=== PATIENT | female | born 1955 | race Caucasian/White ===

== ENCOUNTER 2017-02-07 14:48 | Inpatient (IN) | payer BC ==
--- NOTE | ~2017-02-07 | DS ---
Unit #: [id number] #: [id number] Patient: ABHAY BAILON [id number] [address] [place], [place] [address] [id number] I MR#: [id number] NAME: ABHAY BAILON ROOM: 46 Age: 61 Sex: F Admission Date: 02/07/2017 : 1955 Discharge Date: 02/09/2017 Attending Physician: Nicholas Coker M.D. Primary Care Physician: Monie Dove M.D. DISCHARGE SUMMARY DISCHARGE DIAGNOSES 1. Acute exacerbation of chronic obstructive pulmonary disease. 2. Medical noncompliance with inhaled medications. 3. Chronic respiratory failure with p.r.n. use of oxygen during the day and at night despite order for 24 hours a day. 4. Hypertension. 5. Chronic pain. 6. Ongoing active tobacco use. 7. Apparent stable right lower lobe nodule felt to be benign. DISCHARGE MEDICATIONS 1. Prednisone 40 mg a day for four days, 20 mg a day for four days. 2. Zithromax 500 mg a day for three days. 3. Symbicort 160 two puffs twice a day with spacer. 4. ProAir two puffs q.i.d. p.r.n. 5. Albuterol nebulizer q.i.d. p.r.n. 6. Xanax 0.5 mg b.i.d. p.r.n. 7. Norvasc 5 mg a day. 8. Hydrocodone 7.5/325 q.i.d. p.r.n. FOLLOWUP Followup with Dr. Ross's nurse practitioner in one to two weeks. She will followup with Dr. Ross in approximately four weeks. She will followup with her family doctor in two to three weeks for general medical care. DIET Is as tolerated. ACTIVITY We will check oxygen levels but I'm convinced she needs oxygen 24 hours a day and this was stressed with the patient. Fire risk with smoking has been stressed. We also discussed in great detail the need for smoking cessation. She is 61 and looks older than her stated age. I am not sure she will live to 67 if she continues to smoke. DESCRIPTION OF HOSPITALIZATION The patient is a 61-year-old female who is admitted through the emergency room. She is known to Dr. Ross. She was treated with steroids, antibiotics, nebulized bronchodilators. Her chest x-ray was not acute disease. She has a very difficult time buying her medications. She said her Symbicort is $25 copay that she has a hard time paying for. I stressed the need for compliance. I do believe she would benefit from the addition of some type of long-acting anticholinergic agent, such as Unit #: [id number] #: [id number] Patient: ABHAY BAILON but at this point she cannot afford it, so it will not be prescribed. Consider adding this as an outpatient. I have discussed with discharge planners anyway to obtain medicine for her but unfortunately the pharmacy here at the hospital is closed. The patient states that she is going to be borrow some money from her sister to pay for her inhalers. On the day of discharge she actually was wanting to go home. She basically was insisting on discharge. She could perform all activities of daily living. Again we have discussed at length no smoking, compliance with her inhaled medications and oxygen, and the need for followup. She will be discharged home in improved condition with followup as described above, however, prognosis is guarded unless she improves her health habits. Dictated by... Sukhwinder Laurent M.D. MARY ELLEN/patricia TD: 02/12/2017 15:04 JOB #: [id number] DISCHARGE SUMMARY Page 1 of 1 X Sukhwinder Laurent MD X DISCHARGE SUMMARY
--- NOTE | ~2017-02-07 | HP ---
Unit #: [id number] #: [id number] Patient: ABHAY MILLER 110016 [address] [address] [id number] I MR#: [id number] NAME: ABHAY MILLER ROOM: 463 Age: 61 Sex: F Admission Date: 02/07/2017 : 1955 Attending Physician: Nicholas Coker M.D. Primary Care Physician: Monie Dove M.D. HISTORY AND PHYSICAL HISTORY OF PRESENT ILLNESS Ms. Miller is a 61-year-old white female with severe chronic obstructive pulmonary disease an, nnfga-za-nfzahay hypoxemic hypercarbic respiratory failure. She presented to the emergency room because of headache. She had also had some cough with yellow sputum production without fever or chills. She had had some more shortness of breath. She had been out of her pulmonary medicines. She had not smoked for four days, but had smoked before then. She said she does not smoke as much anymore because she can't afford them. In the emergency room her O2 saturation on 2 liters was 83%. Her blood pressure was 141/72, pulse was 115 and temperature was 98.5. She was given Compazine, Benadryl, Solu-Medrol and Toradol with resolution of headache. She was noted to have some wheezing in the emergency room. On 3 liters oxygen her saturations mica to 93%. Chest x-ray showed no acute infiltrates, mass or congestion. Head CT scan showed no acute abnormality. Arterial blood gas was 7.36, pCO2 70, pO2 64. These were in the computer as being on room air, but I think they were probably on 3 liters. She chronically wears 2-3 liters of oxygen at home. Her PCO2's have chronically been elevated in the 60 range in the last 3 years. The remainder of her lab work showed BMP fairly unremarkable except for a CO2 of 38. White blood cell count was 12,300, hematocrit 41.5, platelet count normal. PAST MEDICAL HISTORY 1. Severe chronic obstructive pulmonary disease with ylbjn-fo-posxyqk respiratory failure, hypoxemic hypercarbic, maintained on O2 at 2-3 liters per minute. 2. History of tobacco abuse. 3. History of bronchiectasis. 4. History of right lower lobe lung nodule, stable, felt to be benign. 5. History of chronic back pain. She receives Lortab through her primary care physician. SOCIAL HISTORY The patient continues to smoke. No alcohol or illicit drugs. FAMILY HISTORY No familial lung disease. ALLERGIES Hydromorphone, oxycodone and penicillin. HOME MEDICATIONS 1. Symbicort. 2. Duo-Nebs/Combivent. Unit #: [id number] #: [id number] Patient: ABHAY MILLER 3. Albuterol. 4. Xanax. 5. Hydrocodone 7.5. 6. Amoxicillin. REVIEW OF SYSTEMS CONSTITUTIONAL: No fevers or chills. HEENT: No rhinorrhea, nasal congestion. PULMONARY: As noted. CARDIAC: No chest pain. Has had a negative catheterization in the last three or four years. GI: No nausea or vomiting. : No hematuria or dysuria. ENDOCRINE: No polyuria or polydipsia. HEMATOLOGIC: Does have easy bruising. SKIN: No rash. NEUROLOGIC: No unilateral weakness or numbness. She has had a headache. AFFECT: Anxiety and depression. PHYSICAL EXAMINATION VITALS: Blood pressure 121/82, pulse 86, respiratory rate 17, afebrile. HEENT: Normocephalic, atraumatic. Pupils equal, round and reactive. Sclerae nonicteric. Nasal passages patent. Posterior pharynx crowded. Mallampati 3. Poor dentition. Multiple missing teeth. NECK: Supple. Trachea midline. No cervical or supraclavicular lymphadenopathy. LUNGS: Diminished breath sounds. Prolonged expiratory phase. Expiratory wheeze bilaterally. HEART: Heart sounds distant. Regular rate and rhythm. Could not appreciate murmur, rub or gallop. ABDOMEN: Nontender. Bowel sounds present. No hepatosplenomegaly. EXTREMITIES: Without clubbing, cyanosis or edema. SKIN: There is bruising over the limbs. Skin is warm and dry. AFFECT: Calm. NEUROLOGIC: Awake, alert and oriented times three. Moves all extremities symmetrically. Cranial nerves grossly intact. DIAGNOSTIC STUDIES LABORATORY: Reviewed. CARDIOVASCULAR: EKG no change. ASSESSMENT 1. Chronic obstructive pulmonary disease exacerbation. 2. Sbktw-lo-wwfbpmz hypoxemic respiratory failure. 3. History of lung nodule, benign. 4. Mildly underweight. 5. Chronic pain. 6. Pulmonary hypertension secondary to severe underlying lung disease. PLAN Inhaled bronchodilators. IV Solu-Medrol coupled with antibiotics in the form of Zithromax. O2 to maintain adequate saturations. Will make sure she needs to get her medications to go home. She may benefit from noninvasive nocturnal ventilation with Trilogy. Will consider that. Also recommended smoking cessation. Counseled in such. Placed on DVT prophylaxis. Further recommendations pending this. Unit #: [id number] #: [id number] Patient: ADAMARISABHAY Dictated by Willy Ross M.D. DEIRDRE/alvino TD: 02/08/2017 11:13 JOB #: [id number] HISTORY AND PHYSICAL Page 1 of 1 X Willy Ross MD X HISTORY AND PHYSICAL
--- NOTE | ~2017-02-07 | CT71 ---
[facility] A Service of [facility] & [facility] RADIOLOGY TEXT RESULTS PATIENT: ABHAY BAILON LOCATION: [facility] 463-01 : [birth year] UNIT #: [id number] AGE: [address]: Nicholas Coker MD SEX: F ORDER DR: [id number] [facility] [address] [place], [place] [address] [id number] I MR#: [id number] Acc #: [id number] NAME: ABHAY BAILON : 1955 SEX: F STUDY DATE/TIME: 02/07/2017 17:01 UNIT: [facility] ROOM: 3 STUDY DESCRIPTION: CT Head Wo Contrast Attending Physician: Nicholas Coker M.D. Ordering Physician: Lonnie Rivas M.D. Primary Care Physician: Monie Dove M.D. MEDICAL IMAGING REPORT This report is preliminary unless electronic signature is present EXAM CT head, 02/07/2017 HISTORY Headache, vomiting, short of air x2 days. TECHNIQUE CT head performed skull base through vertex without intravenous contrast. Comparison 04/20/2015. This CT exam was performed with one or more of the following radiation dose reduction techniques: Automatic exposure control, adjustment of mA and/or kV according to patient size, and iterative reconstruction. FINDINGS Current study degraded by motion artifact. The brainstem is grossly unremarkable. Cerebellum and cerebral hemispheres show overall preservation black matter-white matter differentiation. No hemorrhage. There is no clear indication of acute cortical ischemia. There are mild periventricular and deep white matter tract probable sequelae of chronic microvascular ischemia. The midline structures are nondisplaced. The basal ganglia are intact. The ventricles, cisterns and sulci show mild generalized enlargement consistent with mild generalized atrophy. There is no intra- or extraaxial mass effect or abnormal intracranial fluid collection. The intraorbital soft tissues are unremarkable. The visualized paranasal sinuses and mastoid air cells are clear. No grossly displaced fracture is seen. IMPRESSION 1. Study significantly degraded by motion artifact. If patient has ongoing neurologic symptoms, consider follow-up imaging particularly given limitations of this examination. 2. No clearly acute abnormality is seen in the brain. Chronic changes include mild periventricular and deep white matter tract probable STS. [facility] A Service of [facility] & [facility] RADIOLOGY TEXT RESULTS PATIENT: ABHAY BAILON LOCATION: [facility] 463-01 : [birth year] UNIT #: [id number] AGE: [address]: Nicholas Coker MD SEX: F ORDER DR: sequelae of chronic microvascular ischemia and mild generalized atrophy. 3. No fracture. 4. There are cavernous carotid and distal vertebral arterial calcifications. Dictated by... Arnulfo Walsh M.D. THIS IS AN ELECTRONICALLY VERIFIED REPORT Arnulfo Walsh M.D. at 02/08/2017 9:54 PM DAMON/juanjose TD: 02/08/2017 03:19 JOB #: [id number] MEDICAL IMAGING REPORT Page 1 of 1 COPY
--- NOTE | ~2017-02-07 | EKG ---
PATIENT: ABHAY BAILON UNIT #: [id number] Ventricular Rate: 86 BPM Atrial Rate: 86 BPM P-R Interval: 130 ms QRS Duration: 78 ms Q-T Interval: 362 ms QTC Calculation(Bezet): 433 ms P [place]: 76 degrees Calculated R [place]: 55 degrees Calculated T [place]: 67 degrees Diagnosis Line: Normal sinus rhythm Diagnosis Line: Right atrial enlargement Diagnosis Line: Borderline ECG Diagnosis Line: When compared with ECG of 18-NOV-2015 12:18, Diagnosis Line: No significant change was found Diagnosis Line: Confirmed by CHERY LOUISE MD ([id number]) on 02/07/2017 Diagnosis Line: 8:43:19 PM INTERPRETING MD: DANI DOLL
--- NOTE | ~2017-02-07 | A ---
[facility] Nutrition Therapy DATE: 02/08/17 Patient: ABHAY BAILON Physician: BHANU Address: [address] [place] [address] Room/Bed: [address] [place] [address], Zip: [place] [address] Admit Date: 02/07/17 Date of : [birth year] Height: 5 2 Weight: 103 46.71 NUTRITIONAL ASSESSMENT: REASON: Low BMI Dx: 61 y/o female admitted for COPD exacerbation PMH: COPD, chronic back pain, smoker Anthropometrics: ht: 5'2" wt: 102# (46.7 kg) BMI 18 Labs: Cl- 91 Meds: dulera, solu-medrol, xanax, levaquin, norvasc I/O & Bowel function: 520/400. 2 BMs 02/06 Skin Integrity: bruising- BLE, BUE, ABD; scab- both shins, no edema Estimated Nutrition Needs: Increased 2' low BMI Assessment: Chart reviewed, events noted. Pt seen for low BMI. RD internet marketing director visited pt at bedside. Pt reports having some weight loss over the past few months, noting her normal weight to be 110# (indicates ~8# weight loss based on the pt's admission wt). Pt reports that her steroid medications sometimes make her lose her appetite, but she usually has a fair appetite. She reports eating >25% of each of her meals yesterday. RD internet marketing director encouraged adequate intake and offered to order supplements. Pt agreed to ensure enlive BID and magic cup. RD will continue to follow. Dx: Underweight r/t PMH, poor intake AEB low BMI (18), pt reported intake 2) Inadequate oral intake r/t current clinical condition AEB >25% of meals consumed, previous weight loss Intervention: 1. Regular diet 2. Ensure supplements + magic cup Monitoring, Evaluation and Goals: 1. Oral intake; consume/tolerate >50% of all meals and/or supplements 2. Weight; prevent weight loss, promote healthy weight gain towards healthy BMI Recommendations: 1. Continue regular diet. [facility] Nutrition Therapy DATE: 02/08/17 Patient: ABHAY BAILON Physician: BHANU Address: [address] [place] [address] Room/Bed: [address] [place] [address], Zip: [place] [address] Admit Date: 02/07/17 Date of : [birth year] Height: 5 2 Weight: 103 46.71 2. Ensure enlive vanilla BID + Magic Cup vanilla with dinner. 3. Encourage adequate PO intake. Pt is at mild-moderate nutritional risk. RD will follow up per protocol. Respectfully, HARRISON LINTON, diversity intern Astird Ford, RD, LD [facility] cc: client file
--- NOTE | ~2017-02-07 | CR72 ---
[facility] A Service of [facility] & [facility] RADIOLOGY TEXT RESULTS PATIENT: ABHAY BAILON LOCATION: [facility] 463-01 : 59 UNIT #: [id number] AGE: [address]: Nicholas Coker MD SEX: F ORDER DR: [id number] [facility] [address] [place], [place] [address] [id number] I MR#: [id number] Acc #: [id number] NAME: ABHAY BAILON : 1955 SEX: F STUDY DATE/TIME: 02/07/2017 17:11 UNIT: [facility] ROOM: [facility] STUDY DESCRIPTION: CR Chest Single View Portable Attending Physician: Nicholas Coker M.D. Ordering Physician: Lonnie Rivas M.D. Primary Care Physician: Monie Dove M.D. MEDICAL IMAGING REPORT This report is preliminary unless electronic signature is present EXAM Portable chest INDICATION Shortness of breath for 2 days. COMPARISON 11/18/2015 FINDINGS Stable chronic appearing interstitial changes. No definite acute infiltrate. Heart size is stable. Chronic calcifications bilaterally. IMPRESSION Stable chronic appearing interstitial changes. No definite acute infiltrates. Dictated by... Ulises West M.D. THIS IS AN ELECTRONICALLY VERIFIED REPORT Ulises West M.D. at 02/08/2017 10:01 AM LEXII/radha TD: 02/08/2017 01:34 JOB #: [id number] MEDICAL IMAGING REPORT Page 1 of 1 COPY
[~2017-02-07 14:48] MED LIST: ACETAMINOPHEN PO; ACETAMINOPHEN650 M3 PO; ACID CONTROL150 M1 PO; ADVIL200 M2 PO; AL-MAG HYDROX-S30 M1 PO; ALBUTEROL 0.5ML NEB; ALBUTEROL MININEB NEB; ALBUTEROL0.63 MG/3 IH; ALBUTEROL0.83 MG/ML IH; ALBUTEROL0.83 MG/ML INH; ALBUTEROL0.83 MG/ML NEB; ALBUTEROL17 G1 IH; ALBUTEROL17 GM INH; ALBUTEROL20 ml INH; AMLODIPINE BESY10 MG PO; AMLODIPINE BESYL5 MG PO; APAP325 MG PO; ARIXTRA10 MG/0.8 SQ; ASPIRIN81 M1 PO; ASPIRIN81 MG PO; ATROVENT NEB; CALAN40 MG PO; CALAN80 MG PO; CIPRO PO; CIPRO250 MG PO; COMBIVENT INH14.7 GM INH; COMBIVENT MININEB INH; COMBIVENT U/D3 M1 INH; COMBIVENT U/D3 M2 INH; COMBIVENT14.7 GM; COMBIVENT14.7 GM INH; COREG3.125 MG PO; COUMADIN4 MG PO; COUMADIN5 MG PO; DOXYCYCLINE MO100 MG PO; DUONEB 2.5-0.5 M3 ML INH; FLEXERIL10 M1 PO; FOLIC ACID1 MG PO; FOSAMAX70 MG PO; GABAPENTIN300 M2 PO; GABAPENTIN300 MG PO; HUMIBID-LA600 MG DOB; HUMIBID-LA600 MG PO; HYDROCODON-ACE1 EAC1 PO; HYDROCODON-ACE1 EAC4 PO; HYDROCODON-ACE118 ML; HYDROCODONE/APA1 T16 PO; IBUPROFEN PO; LASIX20 MG PO; LEVAQUIN PO; LEVAQUIN250 MG PO; LEVAQUIN750 MG PO; LEVOFLOXACIN1 GM PO; LEVOFLOXACIN500 MG PO; LIPITOR20 MG PO; LIPITOR80 MG PO; LORTAB 5/500 TA1 TA1 PO; LORTAB 7.5-3251 EACH PO; LORTAB 7.5-5001 TAB PO; LORTAB 7.51 TAB PO; LOVENOX100 MG/ML INJ; LOW DOSE ASPIRI81 M1 PO; MERREM500 MG IV; MORGIDOX100 MG PO; NAPROSYN500 MG PO; NEURONTIN300 MG PO; NICOTINE TRANSD21 MG TD; NORCO 7.5-3251 EACH PO; NORVASC PO; NORVASC10 MG PO; NOVOLOG100 U/ML SUBQ; OXYGEN NS; PEPCID PO; PHENERGAN25 M1 PO; PRAVACHOL20 MG PO; PREDNISOLONE5 MG PO; PREDNISONE PO; PREDNISONE10 MG PO; PREDNISONE10 MG/DOSE; PREDNISONE10 MG/DOSE PO; PREDNISONE5 M1 PO; PRENAPLUS TABL1 EACH PO; PRILOSEC20 M1 PO; PROAIR HFA8.5 GM INH; SPIRIVA18 MCG INH; SPIRIVA18 MCG PO; SYMBICORT; SYMBICORT INH; SYMBICORT80; SYMBICORT80 INH; TESSALON PERLE100 M1 PO; TOPROL XL PO; VANCOMYCIN HCL1 GM IV; VERAPAMIL HCL80 MG PO; VIBRAMYCIN100 M1 PO; VICODIN 5/1 TAB 5/50 PO; VIT B-12 PO; VIT B12 PO; VITAMIN B-1100 M1 PO; VITAMIN B12-FO1 EACH PO; VITAMIN D50000 UNIT PO; XANAX0.5 M1 PO; XARELTO20 MG PO; ZANTAC150 MG PO; ZESTRIL5 MG PO; ZITHROMAX PO; ZITHROMAX1 G/PKT PO; ZOFRAN ODT4 MG DOB; ZOVIRAX800 MG PO
[2017-02-07 15:42] LABS: BASOPHIL% 0.4 % (0-2.5); EOSINOPHIL# 0.6 X10e3 (0-0.7); EOSINOPHIL% 4.7 % (0.0-7.0); HEMATOCRIT 41.5 % (35.0-45.0); HEMOGLOBIN 13.2 gm/dL (12.0-16.0); LYMPHOCYTE% 16.6 % (17.0-45.0); MEAN CORPUSCULAR HEMOGLOBIN 34.4 PG (28-34); MEAN CORPUSCULAR HGB CONC 31.9 g/dL (30-36); MEAN PLATELET VOLUME 7.7 FL (6.5-11.5); MONOCYTE# 1.5 X10e3 (0-1.0); MONOCYTE% 12.3 % (3.0-12.0); NEUTROPHIL# 8.1 X10e3 (1.5-7.1); PLATELET COUNT 394 X10e3 (140-420); RED BLOOD COUNT 3.84 X10e (3.90-5.30); RED CELL DISTRIBUTION WIDTH 12.7 % (11.0-15.5); WHITE BLOOD COUNT 12.3 X10e3 (4.0-10.5)
[2017-02-07 15:45] LABS: DIFF IND YES
[2017-02-07 16:00] LABS: ALBUMIN SERUM 3.7 g/dL (3.5-5.0); BILIRUBIN, DIRECT 0.1 mg/dL (0.0-0.2); BILIRUBIN,INDIRECT 0.6 mg/dL (0.0-0.9); BILIRUBIN,TOTAL 0.7 mg/dL (0.2-2.0); CALCIUM SERUM 9.4 mg/dL (8.4-10.2); CREATININE SERUM 0.6 mg/dL (0.6-1.4); GLOM FILT RATE Estimated 99.8 mL/min (>60); PROTEIN TOTAL SERUM 7.2 g/dL (6.0-8.3)
[2017-02-07 16:48] LABS: ANISOCYTOSIS SL; PLATELET ESTIMATE NORMAL (NORMAL); POIKILOCYTOSIS SL
[2017-02-07 16:58] LABS: POC - CKMB 3.1 ng/mL (0.0-7.9); POC - TROPONIN <0.05 ng/mL (<=0.05)
[2017-02-07 17:18] LABS: POC - CKMB 4.8 ng/mL (0.0-7.9); POC - TROPONIN <0.05 ng/mL (<=0.05)
[2017-02-07] MEDS ORDERED: XANAX0.5 M1 PO (18:54)
[2017-02-07] MEDS ORDERED: ALBUTEROL MININEB INH (18:54)
[2017-02-07] MEDS ORDERED: SYMBICORT INH (18:55)
[2017-02-07] MEDS ORDERED: NORVASC PO (18:55)
[2017-02-07] MEDS ORDERED: PROAIR HFA8.5 GM INH (18:56)
[2017-02-07] MEDS ORDERED: HYDROCODON-ACE1 EAC9 PO (20:14)
[2017-02-07 20:38] LABS: ARTERIAL BLD GAS O2 SATURATION 90.6 % (90.0-100.0); ARTERIAL BLOOD GAS CARBOXY HB 2.1 %sat (0.0-9.0); ARTERIAL BLOOD GAS HCO3 40.2 mmol/L; ARTERIAL BLOOD GAS MET HB 0.7 %sat (0.0-2.0); ARTERIAL BLOOD GAS pH 7.366 (7.350-7.450)
[2017-02-07 20:45] LABS: ARTERIAL BLOOD GAS ALLEN TEST NORMAL; ARTERIAL BLOOD GAS ART SITE RIGHT RADIAL; ARTERIAL BLOOD GAS DELIVERY ROOM AIR; ARTERIAL BLOOD GAS PCO2 70.3 mmHg (35.0-45.0); ARTERIAL BLOOD GAS PO2 64.9 mmHg (80.0-100); ARTERIAL DRAW? YES
[2017-02-09] MEDS ORDERED: ZITHROMAX500 MG PO (12:25)
[2017-02-09] MEDS ORDERED: SYMBICORT (12:27)
== END 2017-02-09 13:48 | disposition home or self-care (01) | DRG 189 ==
LOC: CED 14:48 → CEDOF 20:15 → C4C 23:42
PROVIDERS: Emergency Medicine
DX: J96.21 Acute and chronic respiratory failure with hypoxia (principal); I27.2 Other secondary pulmonary hypertension; J44.1 Chronic obstructive pulmonary disease with (acute) exacerbation; Z68.1 Body mass index [BMI] 19.9 or less, adult; R63.6 Underweight; I10 Essential (primary) hypertension; E78.5 Hyperlipidemia, unspecified; F17.210 Nicotine dependence, cigarettes, uncomplicated; Z88.0 Allergy status to penicillin; Z88.8 Allergy status to other drugs, medicaments and biological substances; G89.29 Other chronic pain
CPT/HCPCS: 36415; 36600; 70450; 71010; 80048; 80076; 82553; 82803; 84484; 85025; 93005; 94640; 94664; 94760; 96374; 96375; 99285; J0780; J1040; J1200; J1650; J1885; J1956; J2920; J2930